=== PATIENT | female | born 1955 | race Caucasian/White ===

== ENCOUNTER → 2022-07-31 | Day surgery (SDC) | payer MEDICARE, OTHER ==
[~2022-07-31] VITALS: Ht 165.1 cm; Wt 97.5 kg
[~2022-07-31] MED LIST: ATORVASTATIN CA40 MG PO; CITALOPRAM HBR40 MG PO; LISINOPRIL-HCT1 EAC2 PO; TRAMADOL HCL50 MG PO
[2022-07-31 08:54] LABS: HCT 40.8 % (37.0-47.0); HGB 13.4 g/dl (12.5-16.0); MCH 28.6 pg (25.0-31.0); MCHC 32.8 g/dL (32.0-36.0); MCV 87.2 fL (78.0-100.0); MPV 10.2 fL (6.0-9.5); RBC 4.68 M/uL (4.20-5.40); RDW 13.2 % (11.5-14.0); WBC 5.3 K/uL (4.0-10.5)
[2022-07-31 09:05] LABS: ALBUMIN 3.6 g/dL (3.4-5.0); BILIRUBIN - TOTAL 1.1 mg/dL (0.2-1.0); BUN/CREAT RATIO (CALC) 17.4 RATIO; CREATININE 0.69 mg/dL (0.51-0.95); GLOBULIN (CALCULATION) 3.1 g/dL; POTASSIUM 3.8 mmol/L (3.5-5.1); TOTAL PROTEIN 6.7 g/dL (6.4-8.2)
== END | disposition home or self-care (01) ==
LOC: FAS 08:09
PROVIDERS: Surgery
DX: Z12.11 Encounter for screening for malignant neoplasm of colon (principal); I10 Essential (primary) hypertension; E78.5 Hyperlipidemia, unspecified; J45.909 Unspecified asthma, uncomplicated; Z88.0 Allergy status to penicillin; Z79.899 Other long term (current) drug therapy
CPT/HCPCS: 36415; 80053; J2250; J2704; J7120